=== PATIENT | female | born 1960 | race Caucasian/White ===

== ENCOUNTER → 2018-02-21 00:37 | Outpatient (CLI) | payer MEDICARE, MEDICAID, SELFPAY ==
[2018-02-21 10:21] LABS: Anion Gap 8.5 mmol/L (3-11); BUN 12 mg/dL (7-18); CO2 28.5 mmol/L (21.0-32.0); CREATININE 1.08 mg/dL (0.55-1.02); Calcium 9.1 mg/dL (8.5-10.1); Chloride 107 mmol/L (98-107); Estimated GFR 52.11 (mL/min/1.73m2); Glucose 104 mg/dL (70-100); Sodium 144 mmol/L (136-145)
== END ==
PROVIDERS: PCP Family Medicine; Visit Provider Family Medicine
DX: I10 Essential (primary) hypertension (principal)
CPT/HCPCS: 36415; 80048

== ENCOUNTER 2020-03-15 14:41 | Outpatient (REF) | payer MEDICARE, MEDICAID, SELFPAY ==
--- NOTE | 2020-03-15 14:30 | PAPFT_PTH ---
PATIENT: SHANELLE DELATORRE LOC: [facility] U#:[id number] AGE/SX: 60/F ROOM: RE03/15/[address]: Sung Howe MD : [id number] BED: DIS: 03/15/2020 SPEC #: [id number] RECD: 03/16/20 13:19 STATUS: BRUNO REQ #: [id number] NICHO: 03/15/20 14:[address]: Sung Howe DEPT: [facility] Cytology RECD BY: Maria L Arroyo Tissues: 1 - CX/ENDOCX FOR PAP SMEARS Procedures: PAP THIN PREP/[facility] Screening HPV DNA PROBE Comments: [id number]
== END 2020-03-15 15:01 ==
LOC: LBN 14:41
PROVIDERS: PCP Family Medicine; Visit Provider Family Medicine
DX: Z12.4 Encounter for screening for malignant neoplasm of cervix (principal); Z11.51 Encounter for screening for human papillomavirus (HPV)
CPT/HCPCS: 88142; 87624

== ENCOUNTER 2020-03-23 05:16 | Outpatient (CLI) | payer MEDICARE, MEDICAID, SELFPAY ==
[2020-03-23 12:33] LABS: Anion Gap 4.1 mmol/L (3-11); BUN 11 mg/dL (7-18); CO2 31.9 mmol/L (21.0-32.0); CREATININE 1.02 mg/dL (0.55-1.02); Calcium 9.4 mg/dL (8.5-10.1); Chloride 108 mmol/L (98-107); Estimated GFR 55.09 (mL/min/1.73m2); Glucose 128 mg/dL (74-106); Potassium 3.9 mmol/L (3.5-5.1); Sodium 144 mmol/L (136-145)
== END 2020-03-23 05:36 ==
PROVIDERS: PCP Family Medicine; Visit Provider Family Medicine
DX: I10 Essential (primary) hypertension (principal)
CPT/HCPCS: 36415; 80048

== ENCOUNTER 2020-06-17 22:22 | Outpatient (REF) | payer MEDICARE, MEDICAID, SELFPAY ==
[2020-06-17 21:12] LABS: Bilirubin Negative (Negative); Blood Trace-lysed (Negative); Clarity Cloudy (Clear); Glucose Negative (Negative); Ketones Negative (Negative); Leukocyte Esterase Large (Negative); Nitrite Negative (Negative); Specific Gravity 1.025 (1.005-1.025); Urobilinogen 0.2 EU/dL (Up TO 0.2)
[2020-06-17 21:29] LABS: Bacteria Moderate HPF (Negative); C & S Indicated? C&S Done As Ordered; Casts Negative LPF (Negative); Crystals Negative HPF (Negative); Epithelial Cells Few HPF (Negative); Mucus Negative (Negative); RBC 0-2 HPF (0-2); WBC >50 HPF (0-5)
[2020-06-17 21:53] LABS: BUN 13 mg/dL (7-18); CREATININE 1.04 mg/dL (0.55-1.02); Calcium 9.2 mg/dL (8.5-10.1); Chloride 108 mmol/L (98-107); Estimated GFR 53.87 (mL/min/1.73m2); Glucose 116 mg/dL (74-106); Potassium 4.2 mmol/L (3.5-5.1); Sodium 143 mmol/L (136-145)
== END 2020-06-17 22:42 ==
LOC: LBN 22:22
PROVIDERS: PCP Nurse Practitioner; Visit Provider Nurse Practitioner Family
DX: N39.0 Urinary tract infection, site not specified (principal)
CPT/HCPCS: 80048; 81003; 81015; 87086

== ENCOUNTER 2020-06-23 01:09 | Outpatient (CLI) | payer MEDICARE, MEDICAID, SELFPAY ==
--- NOTE | 2020-06-23 07:30 | DI.RAD_ITS ---
EXAM: XR LUMBAR SPINE COMPLETE CLINICAL HISTORY: lumbar back pain,M54.30. TECHNIQUE: 2D digital imaging was performed. COMPARISON: CT RENAL COLIC WO CONTRAST from 06/07/2012 FINDINGS: There is partial sacralization of L5. There is a rudimentary disc at L5-S1 . The vertebral bodies are well maintained in height. There are small endplate osteophytes. There are mild facet joint deg enerative changes. There are calcifications projecting in both kidneys. IMPRESSION: Mild degenerative changes. Bilateral nephrolithiasis. DATA REPOSITORY: RADIATION DOSE DELIVERED:
--- NOTE | 2020-06-23 07:30 | DI.US_ITS ---
EXAM: US RENAL CLINICAL HISTORY: history of nephrolithiasis,N20.0. TECHNIQUE: Brady scale, color and spectral Doppler were used. COMPARISON: CT RENAL COLIC WO CONTRAST from 06/07/2012 FINDINGS: The right kidney measures 7.8 centimetres in length. Left kidney measures 8.7 centimetres in length. In the right kidney there are echogenic foci seen in the inferior pole measuring 6 millimeters consis tent with calculus seen at this location on the prior 2012 CT scan. There is also some cortical thin caridad posteriorly which is also consistent with what is seen on the prior 2012 CT scan. No cysts nor solid masses evident in the right kidney. No perinephric fluid. No obvious hydronephrosis. The left kidney exhibits multiple shadowing foci, the largest measuring 8 millimeters and consistent with calculi as seen on the 2012 CT scan. Other smaller calculi are seen at the midpole level. [place] ical thickness is normal in left kidney. No hydronephrosis. No cyst or masses. The left ureterovesical jet was witnessed. The right was not seen. Urinary bladder: Ureteral jets: Prevoid volume 208 cc/postvoid volume increased at 126 cc.. There is a debris sediment in the intrav esicular urine. No obvious mural mass. No diverticulum is seen. IMPRESSION: 1. There is a large amount of postvoid residual urine in the bladder (126 cc). There is also sedimen t in the urinary bladder. No obvious bladder wall mass. 2. 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 There also appears to be some scarring in the posterior cortex of the right kidney, as seen on 2012 CT scan. No hydronephrosis. No solid mario al masses nor renal cysts identified. DATA REPOSITORY:
--- NOTE | 2020-06-23 07:30 | DI.RAD_ITS ---
EXAM: XR SACROILIAC JOINTS CLINICAL HISTORY: sciatic notch pain,M54.30. TECHNIQUE: 2D digital imaging was performed. COMPARISON: CT RENAL COLIC WO CONTRAST from 06/07/2012 CR XR LUMBAR SPINE COMPLETE from 06/23/2020 FINDINGS: BONES: No acute fracture is present. No bony destructive lesion is seen. JOINTS: No dislocation present. There is spurring and sclerosis at the inferior SI joints, consistent with degenerative changes. No SI joint widening is seen. Mild degenerative changes of the hip join ts. SOFT TISSUE: Calcification in the distal abdominal aorta and proximal iliac arteries. IMPRESSION: Degenerative changes of the inferior SI joints. DATA REPOSITORY: RADIATION DOSE DELIVERED:
== END 2020-06-23 01:29 ==
PROVIDERS: PCP Nurse Practitioner; Visit Provider Nurse Practitioner Family
DX: N20.0 Calculus of kidney (principal); R39.198 Other difficulties with micturition; M47.816 Spondylosis without myelopathy or radiculopathy, lumbar region
CPT/HCPCS: 76770; 72110; 72202